=== PATIENT | female | born 1960 | race Caucasian/White ===

== ENCOUNTER 2020-04-01 07:13 | Emergency (ER) | payer OTHER ==
[~2020-04-01] VITALS: Ht 157.5 cm; Wt 55.8 kg
[2020-04-01 07:37] VITALS: Ht 157.5 cm; Wt 55.8 kg
[2020-04-01 08:21] LABS: BASOPHIL % 0.9 % (0-2); PLATELET COUNT 261 x10^3mcL (130-400); RED CELL DISTRIBUTION WIDTH 13.7 % (11.5-14.5)
[2020-04-01 08:43] LABS: CALCIUM 9.5 mg/dL (8.5-10.1); CHLORIDE SERUM 105 mmol/L (98-107); CREATININE SERUM 0.7 mg/dL (0.6-1.0); GFR1 > 60 mL/min; GLUCOSE SERUM 98 mg/dL (74-106); POTASSIUM SERUM 3.7 mmol/L (3.5-5.1); SODIUM SERUM 143 mmol/L (136-145)
[2020-04-01 08:48] LABS: ALBUMIN 4.2 g/dL (3.4-5.0); ALKALINE PHOSPHATASE 62 U/L (46-116); ALT/SGPT 25 U/L (14-59); AST/SGOT 21 U/L (15-37); BILIRUBIN TOTAL 0.4 mg/dL (0.20-1.00); TOTAL PROTEIN, SERUM 7.8 g/dL (6.4-8.2)
[2020-04-01 11:04] VITALS: BP 130/61
== END 2020-04-01 11:04 | disposition home or self-care (01) ==
LOC: ED 07:13
DX: N94.89 Other specified conditions associated with female genital organs and menstrual cycle (principal); D25.9 Leiomyoma of uterus, unspecified
CPT/HCPCS: J1885; Q0092

== ENCOUNTER 2020-05-27 09:29 | Emergency (ER) | payer OTHER ==
[~2020-05-27] VITALS: Ht 157.5 cm; Wt 56.7 kg
[2020-05-27 10:22] VITALS: Ht 157.5 cm; Wt 56.7 kg
[2020-05-27 11:46] VITALS: BP 160/77
== END 2020-05-27 12:31 | disposition home or self-care (01) ==
LOC: ED 09:29
DX: M77.8 Other enthesopathies, not elsewhere classified (principal)

== ENCOUNTER 2020-05-30 09:11 | Emergency (ER) | payer OTHER ==
[~2020-05-30] VITALS: Ht 157.5 cm; Wt 53.5 kg
[2020-05-30 09:17] VITALS: BP 132/73; Ht 157.5 cm; Wt 53.5 kg
== END 2020-05-30 10:40 | disposition home or self-care (01) ==
LOC: ED 09:11
DX: G56.01 Carpal tunnel syndrome, right upper limb (principal); E78.00 Pure hypercholesterolemia, unspecified